=== PATIENT | female | born 1990 | race Caucasian/White ===

== ENCOUNTER 2025-06-05 17:34 | Emergency (ER) | payer OTHER, SELFPAY ==
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
[2025-06-05 17:50] VITALS: BP 127/79; PULSE 87; O2SAT 99
[2025-06-05 17:53] VITALS: BP 98/44; PULSE 80; RESP 18; TEMP 36.4; O2SAT 98; BMI 44.4
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
[2025-06-05 21:41] VITALS: BP 119/77; PULSE 75; RESP 20; TEMP 36.2; O2SAT 98
[2025-06-05 21:48] VITALS: BP 119/77; PULSE 75; RESP 20; TEMP 36.2; O2SAT 98
== END 2025-06-05 21:49 | disposition home or self-care (01) ==
PROVIDERS: Emergency Provider Emergency Medicine; PCP Family Medicine
DX: M54.2 Cervicalgia (principal); R07.89 Other chest pain; M79.602 Pain in left arm; V49.88XA Car occupant (driver) (passenger) injured in other specified transport accidents, initial encounter; Y93.89 Activity, other specified; Y92.488 Other paved roadways as the place of occurrence of the external cause; Y99.8 Other external cause status
CPT/HCPCS: 70450; 71046; 72125; 99284

== ENCOUNTER → 2025-06-05 20:00 | Outpatient (BNV) | payer OTHER, SELFPAY | PROVIDERS: Emergency Provider Emergency Medicine; PCP Family Medicine; Visit Provider Radiology Diagnostic Radiology | DX: S19.9XXA Unspecified injury of neck, initial encounter (principal); S09.90XA Unspecified injury of head, initial encounter; R07.89 Other chest pain; V89.2XXA Person injured in unspecified motor-vehicle accident, traffic, initial encounter | CPT/HCPCS: 70450; 71046; 72125 ==

== ENCOUNTER 2025-06-06 13:29 | Emergency (ER) | payer OTHER, SELFPAY ==
[2025-06-06 13:39] VITALS: BP 129/85; PULSE 99; RESP 20; TEMP 36.7; O2SAT 97; BMI 42.7
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
[2025-06-06 15:19] VITALS: BP 153/77; PULSE 91; RESP 18; O2SAT 95
[2025-06-06 15:36] VITALS: BP 153/77; PULSE 91; RESP 18; TEMP -17.7; TEMP 0; O2SAT 95
== END 2025-06-06 15:50 | disposition home or self-care (01) ==
LOC: HO.ED 15:26
PROVIDERS: Emergency Provider Emergency Medicine
DX: Z04.1 Encounter for examination and observation following transport accident (principal); M62.838 Other muscle spasm; M54.2 Cervicalgia; M54.50 Low back pain, unspecified
CPT/HCPCS: 99283; 99284